=== PATIENT | male | born 1950 | race Caucasian/White ===

== ENCOUNTER 2021-11-30 12:53 | Observation (INO) ==
[2021-11-30 13:17] LABS: ABS Lymphocytes 1.6 10^3/ul (1.0-4.8); ABS Monocytes 0.6 10^3/ul (0-0.8); ABS Neutrophils 4.6 10^3/ul (1.5-7.7); Eosinophil % 0.5 %; Hematocrit 42 % (42-52); Hemoglobin 14.3 g/dL (14.0-18.0); Lymphocyte % 22.7 %; Mean Corpuscular HGB Conc 34 g/dL (31-36); Mean Corpuscular Hemoglobin 32 pg (27-31); Mean Corpuscular Volume 94 fL (80-94); Mean Platelet Volume 7.3 fL (7.4-10.4); Platelet Count 205 10^3/uL (150-450); Red Blood Count 4.48 10^6 /uL (4.18-5.48); Red Cell Distribution Width 14 % (10-15); White Blood Count 6.8 10^3/uL (3.5-10.8)
[2021-11-30 13:25] LABS: INR 0.99 (0.86-1.15)
[2021-11-30 13:39] LABS: Albumin/Globulin Ratio 1.2 (1-3); Calcium 8.7 mg/dL (8.6-10.3); Globulin 3.4 g/dL (2-4); Potassium 3.8 mmol/L (3.5-5.0); Total Bilirubin 0.6 mg/dL (0.2-1.0); Total Protein 7.4 g/dL (6.4-8.9); eGFR CKD-EPI 93.1 (>60)
[2021-11-30] MEDS ORDERED: Al Hydrox/Mg Hydrox/Simet LIQ 30 ML UDC PO PRN (16:42)
[2021-11-30] MEDS ORDERED: Nitroglycerin 0.3 mg TAB SL PRN (17:07)
[2021-11-30] MEDS: Enoxaparin 40 MG/0.4 ML SYR SUBCUT SCH (17:39)
[2021-11-30] MEDS ORDERED: Albuterol HFA INHALER 8 gm MDI INH SCH (18:00)
[2021-11-30] MEDS ORDERED: Albuterol HFA INHALER 8 gm MDI INH PRN (18:47)
[2021-11-30] MEDS ORDERED: Budesonide/Formote 160/4.5(NF) MDI INH SCH (21:00)
[2021-12-01] MEDS: Mometasone/Formoter 200/5 MDI INH SCH ×3 (03:40→20:22)
[2021-12-01] MEDS: Aspirin EC 81 mg TAB.EC (enteric coated) PO SCH (08:31)
[2021-12-01] MEDS: SPIRIVA Respimat (tiotropium) 2.5 mcg/inh Inhaler INH SCH (08:35)
[2021-12-01] MEDS: Enoxaparin 40 MG/0.4 ML SYR SUBCUT SCH (19:15)
[2021-12-02] MEDS: Mometasone/Formoter 200/5 MDI INH SCH ×2 (07:30→19:32)
[2021-12-02] MEDS: SPIRIVA Respimat (tiotropium) 2.5 mcg/inh Inhaler INH SCH (07:31)
[2021-12-02] MEDS: Aspirin EC 81 mg TAB.EC (enteric coated) PO SCH (08:12)
[2021-12-02] MEDS: Enoxaparin 40 MG/0.4 ML SYR SUBCUT SCH (18:16)
[2021-12-03] MEDS ORDERED: NS 0.9% 1000 ml BAG 1,000 ML IV SCH
[2021-12-03] MEDS: Mometasone/Formoter 200/5 MDI INH SCH ×2 (07:21→19:51)
[2021-12-03] MEDS: SPIRIVA Respimat (tiotropium) 2.5 mcg/inh Inhaler INH SCH (07:22)
[2021-12-03] MEDS: Aspirin EC 81 mg TAB.EC (enteric coated) PO SCH (09:56)
[2021-12-03 17:39] VITALS: BP 132/76
[2021-12-03] MEDS: Enoxaparin 40 MG/0.4 ML SYR SUBCUT SCH (18:44)
== END 2021-12-03 19:44 | disposition home or self-care (01) ==
LOC: ED 12:53 → EDHOLD 12:53 → MEDTELE 20:05
PROVIDERS: ADMIT Internal Medicine; ATTEND Internal Medicine